=== PATIENT | male | born 1945 | race Caucasian/White ===

== ENCOUNTER 2021-10-04 07:14 | Inpatient (IN) | payer OTHER ==
[~2021-10-04] VITALS: Ht 152.4 cm; Wt 79.4 kg
[2021-10-04 08:31] LABS: CHLORIDE 107 mEq/L (98-107)
[2021-10-04 08:37] LABS: HEMATOCRIT. 33.6 % (42.0-52.0); HEMOGLOBIN. 11.2 g/dL (14.0-18.0); MEAN CORPUSCULAR HEMOGLOBIN 31.4 pg (28.0-32.0); MEAN CORPUSCULAR VOLUME 94.4 fL (80.0-94.0); MEAN PLATELET VOLUME 9.1 fl (7.4-10.4); PLATELET 183 x1000/uL (130-400); RED BLOOD CELL COUNT 3.56 mill/uL (4.7-6.1); RED CELL DISTRIBUTION WIDTH 15.3 % (11.6-14.6)
[2021-10-04] MEDS ORDERED: PIPERACILLIN/TAZ 3.375G PREMIX 50 ML IV ONE (09:15)
[2021-10-04] MEDS ORDERED: SODIUM CHLORIDE 0.9% 1000ML BAG (SEPSIS BOLUS) IV ONE (09:15)
[2021-10-04] MEDS ORDERED: VANCOMYCIN 1G PREMIX 200 ML IV ONE (09:15)
[2021-10-04 09:24] LABS: PLATELET ESTIMATE NORMAL
[2021-10-04] MEDS ORDERED: SODIUM CHLORIDE 0.9% 1,000 ML IV ONE (13:15)
[2021-10-04 17:30] LABS: CLARITY URINE CLEAR (CLEAR); COLOR URINE YELLOW (YELLOW); KETONES URINE TRACE (NEGATIVE); LEUKOCYTE ESTERASE URINE 2+ (NEGATIVE); NITRITE URINE POSITIVE (NEGATIVE); OCCULT BLOOD URINE 2+ (NEGATIVE); PROTEIN URINE 1+ (NEGATIVE); SPECIFIC GRAVITY URINE 1.018 (1.005-1.030)
[2021-10-04] MEDS ORDERED: ACETAMINOPHEN 325MG TABLET PO ONE (17:45)
[2021-10-04] MEDS ORDERED: ONDANSETRON HCL 4MG/2ML INJ IV PRN (20:15)
[2021-10-04] MEDS ORDERED: MAGNESIUM/ALUMINUM HYDROXIDE/SIMETHICONE 30ML UDC PO PRN (20:15)
[2021-10-04] MEDS ORDERED: HYDROCODONE/ACETAMINOPHEN 5/325MG TABLET PO PRN (20:15)
[2021-10-04] MEDS ORDERED: ACETAMINOPHEN 325MG TABLET PO PRN ×2 (20:15)
[2021-10-04] MEDS ORDERED: GUAIFENESIN 200MG/10ML SUGAR FREE UDC PO PRN (20:15)
[2021-10-04] MEDS: ENOXAPARIN 40MG/0.4ML SYR SUBCUT SCH (21:00)
[2021-10-05] VITALS (7 sets, daily range): BP systolic 97–144; BP diastolic 53–96
[2021-10-05 03:40] LABS: BASOPHILS % 0.4 % (0.0-2.0); EOSINOPHILS % 2.5 % (0.0-5.0); HEMATOCRIT. 30.3 % (42.0-52.0); HEMOGLOBIN. 10.1 g/dL (14.0-18.0); LYMPHOCYTES % 13.4 % (20.0-50.0); MEAN CORPUSCULAR HEMOGLOBIN 31.4 pg (28.0-32.0); MEAN CORPUSCULAR VOLUME 94.1 fL (80.0-94.0); MONOCYTES % 8.8 % (2.0-8.0); NEUTROPHILS % 74.9 % (40.0-76.0); PLATELET 144 x1000/uL (130-400); RED BLOOD CELL COUNT 3.22 mill/uL (4.7-6.1); RED CELL DISTRIBUTION WIDTH 14.9 % (11.6-14.6)
[2021-10-05 03:54] LABS: PHOSPHORUS 2.7 mg/dL (2.5-4.9)
[2021-10-05] MEDS ORDERED: CEFTRIAXONE 1 G PREMIX 50 ML IV SCH (09:00)
[2021-10-05] MEDS ORDERED: NALOXONE HCL 0.4MG/ML VIAL IV PRN (12:45)
[2021-10-05] MEDS: SODIUM CHLORIDE 0.9% 1,000 ML IV SCH (16:00)
[2021-10-05] MEDS ORDERED: MAGNESIUM 2 G PREMIX 50 ML IV NR (17:30)
[2021-10-05] MEDS: ENOXAPARIN 40MG/0.4ML SYR SUBCUT SCH (20:41)
[2021-10-06] VITALS: BP 144/74
[2021-10-06] MEDS: SODIUM CHLORIDE 0.9% 1,000 ML IV SCH ×3 (00:24→21:48)
[2021-10-06 04:00] VITALS: BP 168/75
[2021-10-06] MEDS: CLONIDINE 0.1MG TABLET PO PRN ×2 (05:18→15:55)
[2021-10-06 08:00] VITALS: BP 137/63
[2021-10-06 08:13] LABS: BASOPHILS % 0.7 % (0.0-2.0); EOSINOPHILS % 4.9 % (0.0-5.0); HEMATOCRIT. 27.9 % (42.0-52.0); HEMOGLOBIN. 9.6 g/dL (14.0-18.0); LYMPHOCYTES % 17.4 % (20.0-50.0); MEAN CORPUSCULAR HEMOGLOBIN 31.7 pg (28.0-32.0); MEAN CORPUSCULAR VOLUME 92.5 fL (80.0-94.0); MEAN PLATELET VOLUME 9.8 fl (7.4-10.4); MONOCYTES % 12.1 % (2.0-8.0); NEUTROPHILS % 64.9 % (40.0-76.0); PLATELET 152 x1000/uL (130-400); RED BLOOD CELL COUNT 3.02 mill/uL (4.7-6.1); RED CELL DISTRIBUTION WIDTH 14.9 % (11.6-14.6)
[2021-10-06 08:43] LABS: CHLORIDE 112 mEq/L (98-107)
[2021-10-06 08:50] LABS: PHOSPHORUS 2.9 mg/dL (2.5-4.9)
[2021-10-06] MEDS: CEFTRIAXONE 1,000 MG in DEXTROSE 5% WATER 50 ML IV SCH (11:17)
[2021-10-06 12:00] VITALS: BP 156/104
[2021-10-06 16:00] VITALS: BP 128/67
[2021-10-06 20:00] VITALS: BP 129/86
[2021-10-06] MEDS: ENOXAPARIN 40MG/0.4ML SYR SUBCUT SCH (21:48)
[2021-10-07] VITALS: BP 139/79
[2021-10-07 04:00] VITALS: BP 129/70
[2021-10-07 06:40] LABS: BASOPHILS % 0.7 % (0.0-2.0); EOSINOPHILS % 4.6 % (0.0-5.0); HEMATOCRIT. 29.8 % (42.0-52.0); HEMOGLOBIN. 10.1 g/dL (14.0-18.0); MEAN CORPUSCULAR HEMOGLOBIN 31.5 pg (28.0-32.0); MEAN CORPUSCULAR VOLUME 92.8 fL (80.0-94.0); MEAN PLATELET VOLUME 9.7 fl (7.4-10.4); MONOCYTES % 10.9 % (2.0-8.0); NEUTROPHILS % 59.8 % (40.0-76.0); PLATELET 159 x1000/uL (130-400); RED BLOOD CELL COUNT 3.22 mill/uL (4.7-6.1); RED CELL DISTRIBUTION WIDTH 14.8 % (11.6-14.6)
[2021-10-07 08:00] VITALS: BP 152/86
[2021-10-07] MEDS: SODIUM CHLORIDE 0.9% 1,000 ML IV SCH (08:00)
[2021-10-07 08:27] LABS: CHLORIDE 111 mEq/L (98-107)
[2021-10-07] MEDS: CEFTRIAXONE 1,000 MG in DEXTROSE 5% WATER 50 ML IV SCH (09:23)
[2021-10-07 12:00] VITALS: BP 125/89
[2021-10-07] MEDS ORDERED: BACITRACIN 15GM TUBE TOP SCH (15:00)
[2021-10-07 16:00] VITALS: BP 157/93
[2021-10-07 20:10] VITALS: BP 148/85
[2021-10-07] MEDS ORDERED: LEVO750T46 MT (22:28)
[2021-10-07] MEDS: ENOXAPARIN 40MG/0.4ML SYR SUBCUT SCH (22:39)
[2021-10-08] VITALS: BP 152/90
[2021-10-08 04:00] VITALS: BP 156/98
[2021-10-08 08:00] VITALS: BP 169/88
[2021-10-08] MEDS: CEFTRIAXONE 1,000 MG in DEXTROSE 5% WATER 50 ML IV SCH (08:49)
[2021-10-08 12:09] VITALS: BP 154/92
[2021-10-08 13:16] VITALS: BP 154/92
[2021-10-08 16:04] VITALS: BP 157/73
== END 2021-10-08 17:49 | disposition home health service (06) | DRG 871 ==
LOC: ER 07:14 → EDBEDREQTM 09:24 → EDBEDREQSVC 11:24 → MICUSO 19:46 → EDBEDREQ 19:47 → EDBEDREQTM 19:47 → SUPCPDRO 19:53 → 5WST 10-05 10:14
PROVIDERS: ADMIT Internal Medicine; ATTEND Internal Medicine
DX: A41.51 Sepsis due to Escherichia coli [E. coli] (principal); G93.41 Metabolic encephalopathy; N39.0 Urinary tract infection, site not specified; R65.20 Severe sepsis without septic shock; M25.552 Pain in left hip; Z20.822 Contact with and (suspected) exposure to COVID-19; R06.00 Dyspnea, unspecified; I48.91 Unspecified atrial fibrillation; E11.9 Type 2 diabetes mellitus without complications; I10 Essential (primary) hypertension; Z74.01 Bed confinement status
CPT/HCPCS: 36415; 71045; 73502; 80048; 80053; 81003; 83036; 83605; 83735; 84100; 84484; 85025; 87077; 87186; 87426; 87804; 93005; 97162; 99291; J0696; J1650; J2543; J3370; J3475; J7030; J7060